=== PATIENT | male | born 1950 | race Caucasian/White ===

== ENCOUNTER → 2025-03-20 | Day surgery (SDC) | payer MEDICARE, OTHER ==
[2025-03-16 11:15] VITALS: BMI 26.6
[~2025-03-20] MED LIST: Sevoflurane 250 ML INH ANEST BOTTLE ONE; oFLOXacin 0.3% Opth 5 ML BOT ONE
== END ==
LOC: CSHSDC 08:21
PROVIDERS: ATTEND Otolaryngology Plastic Surgery within the Head & Neck
DX: H70.11 Chronic mastoiditis, right ear (principal); Z53.8 Procedure and treatment not carried out for other reasons; T16.1XXA Foreign body in right ear, initial encounter; H92.11 Otorrhea, right ear
CPT/HCPCS: 70480; J0169

== ENCOUNTER 2025-04-17 05:38 | Day surgery (SDC) | payer MEDICARE, OTHER ==
[2025-04-14 11:15] VITALS: BMI 25.1
[2025-04-17] MEDS ORDERED: oFLOXacin 0.3% Opth 5 ML BOT ONE (06:27)
[2025-04-17] MEDS ORDERED: Lidocaine 1% w/Epinephrine 1:200K 30 ML VIAL ONE (06:27)
[2025-04-17] MEDS ORDERED: PROPOFOL 40 ML ONE (06:31)
[2025-04-17] MEDS ORDERED: SUGAMMADEX SODIUM 200 MG/2 ML VIAL ONE (06:31)
[2025-04-17] MEDS ORDERED: Rocuronium Bromide 10 MG/ML (10ML VIAL) ONE (06:31)
== END 2025-04-17 11:10 | disposition home or self-care (01) ==
LOC: CSHSDC 05:38
PROVIDERS: ATTEND Otolaryngology Plastic Surgery within the Head & Neck
PROC: 0NB50ZZ Excision of Right Temporal Bone, Open Approach (ICD-10-PCS; principal; 2025-04-17)
DX: H70.11 Chronic mastoiditis, right ear (principal); T16.1XXA Foreign body in right ear, initial encounter; H92.11 Otorrhea, right ear; H66.011 Acute suppurative otitis media with spontaneous rupture of ear drum, right ear; H61.23 Impacted cerumen, bilateral; H60.503 Unspecified acute noninfective otitis externa, bilateral; Z87.891 Personal history of nicotine dependence; Z98.890 Other specified postprocedural states; Z95.5 Presence of coronary angioplasty implant and graft; E11.9 Type 2 diabetes mellitus without complications
CPT/HCPCS: 69502; 82962; J0169; J1100; J2371; J2704; 36416; 88304